=== PATIENT | female | born 2000 | race African-American/Black ===

== ENCOUNTER 2022-03-09 19:15 | Emergency (ER) | payer BC, MEDICAID, SELFPAY ==
--- NOTE | ~2022-03-09 | CT_ITS ---
EXAMINATION: CT abdomen pelvis w con DATE: 03/09/2022 20:45 INDICATION: Low abdominal pain. Back pain. Nausea and vomiting. TECHNIQUE: Computed tomography (CT) of the abdomen and pelvis was performed with 100 mL Omnipaque 350 intravenous contrast. Automated exposure control and iterative reconstruction technique were employe d. The dose-length product was 1011.16 mGy-cm. COMPARISON: None. FINDINGS: The visualized portions of the lung bases are clear without pneumonia or pleural effusion. The heart size is normal. No pericardial effusion. The liver, gallbladder, spleen, pancreas, adrenal glands, and kidneys are normal. There are no dilated loops of bowel. The appendix is normal. There ar e no pathologically enlarged lymph nodes. There is physiologic fluid in the pelvis. There is mild lum bar and thoracic spondylosis. IMPRESSION: 1. No specific etiology for the patient's symptoms. Reviewed, dictated and finalized at location A.
[2022-03-09 19:19] VITALS: BP 131/83; PULSE 84; RESP 20; TEMP 36.3; O2SAT 100
--- NOTE | 2022-03-09 19:41 | ED.ABDPAIN ---
HPI - Abdominal Pain General Chief Complaint: Abdominal Pain Stated Complaint: ABD pain Time Seen by Provider: 03/09/22 19:33 History of Present Illness HPI narrative: Patient is a 21-year-old G1, P1 female with history of ovarian cyst status post removal last year here for evaluation of lower abdominal pain for the past 3 days. Patient states that the pain is intermittent in nature and crampy, begins in her lower abdomen and occasionally moves to her back. Pain no longer present at time of evaluation; resolved without intervention. Additionally reports some intermittent nausea but no vomiting. No fevers or chills, constipation or diarrhea, abnormal vaginal bleeding. Last menstrual cycle was on the and was normal for her. Related Data Allergies Allergy/AdvReac Type Severity Reaction Status Date / Time No Known Allergies Allergy Verified 03/09/22 19:22 Review of Systems Review of Systems: Gen: Denies fevers or chills Eyes: Denies eye pain or visual change ENT: Denies congestion Respiratory: Denies shortness of breath or cough CV: Denies chest pain or palpitations GI: reports abdominal pain. Denies nausea, emesis or diarrhea : denies burning, urgency, frequency or hematuria Musculoskeletal: Denies back pain or muscle pain Neuro: Denies numbness, tingling, weakness or focal weakness Skin: Denies rash Except as documented, all other systems reviewed and negative Exam Narrative: APPEARANCE: Well appearing, no pain in distress, well-nourished. Head: Normocephalic and atraumatic. EYES: PERRLA/EOMI, conjunctivae clear NOSE: No nasal drainage EARS: External ear normal in appearance THROAT: Oropharynx is clear. Mucous membranes are moist. NECK: Supple. No adenopathy, no masses. RESPIRATORY: Airway patent, respirations nonlabored. Clear to auscultation bilaterally, no rales, rhonchi, wheezing. CARDIOVASCULAR: Regular rate and rhythm without murmurs, rubs, or gallops. ABDOMINAL: Normoactive bowel sounds. Soft, nontender, nondistended. No rebound tenderness or guarding. MUSCULOSKELETAL: Extremities are warm and well-perfused. Moves all extremities well. No edema. NEURO: Normal speech. No focal neurologic deficits. SKIN: Skin is warm and dry. No rashes. PSYCHIATRIC: Normal affect/mood. Course Vital Signs Vital signs: Vital Signs Temperature 97.4 F L 03/09/22 19:19 Pulse Rate 84 03/09/22 19:19 Respiratory Rate 20 03/09/22 19:19 Blood Pressure 131/83 03/09/22 19:19 Pulse Oximetry 100 03/09/22 19:19 Temperature 97.4 F L 03/09/22 19:19 Pulse Rate 84 03/09/22 19:19 Respiratory Rate 20 03/09/22 19:19 Blood Pressure 131/83 03/09/22 19:19 Pulse Oximetry 100 03/09/22 19:19 MDM - Abdominal Pain MDM Narrative Medical decision making narrative: 21-year-old female here for evaluation of lower abdominal pain for the past several days associated with some nausea. Here she is nontoxic-appearing with normal vital signs and she has no abdominal tenderness on exam, pain has resolved by time of evaluation. Basic labs unremarkable, no leukocytosis, normal lipase. UA unremarkable. Abdomen pelvis CT without findings to explain patient's pain. She was reassured, encouraged to follow-up with her primary care provider next week. Unclear etiology for patient's pain, possibly constipation versus unspecified GI virus. She was given reasons to return to the ED and she voiced understanding. Lab Data Result diagrams: 03/09/22 20:07 03/09/22 20:07 Labs: Lab Results 03/09/22 03/09/22 03/09/22 Range/Units 19:30 20:07 20:07 WBC 7.7 (4.5-10.0) K/mm3 RBC 3.74 L (4.2-5.4) M/mm3 Hgb 11.2 L (12.0-15.0) g/dL Hct 35.1 L (37.0-47.0) % MCV 93.9 (80-100) fl MCH 29.9 (26-34) pg MCHC 31.9 L (32-36) g/dl RDW 13.2 (11.5-14.5) % Plt Count 213 (150-375) k/mm3 MPV 10.0 (7.4-10.4) fl Immature Gran % (Auto) 0.1 (0-0.5) % Neut % (Au
[2022-03-09 19:42] LABS: Appearance Urine Clear (Clear); Bilirubin Urine Negative (Negative); Blood Urine Negative (Negative); Color Urine Yellow (Yellow); Glucose Urine UA Negative (Negative); Ketones Urine Negative (Negative); Leukocyte Esterase Ur Negative LEU/UL (Negative); Nitrate Urine Negative (Negative); Protein Urine Negative (Negative); Specific Grav Ur 1.025 (1.001-1.035)
[2022-03-09 19:45] LABS: Mucus Urine Rare /lpf; RBC Urine 0-2 /hpf (0-2); Squamous Epithelial Cell Urine Many /hpf (Few); WBC Urine 0-3 /hpf
[2022-03-09 19:51] LABS: Add Urine Microscopic? NO
[2022-03-09 20:13] LABS: Basophils Absolute Auto 0.1 K/mm3 (0.0-0.1); Basophils Percent Auto 0.7 % (0.2-1.2); Eosinophils Absolute Auto 0.1 K/mm3 (0-0.3); Eosinophils Percent Auto 0.9 % (0-4.4); Hematocrit 35.1 % (37.0-47.0); Hemoglobin 11.2 g/dL (12.0-15.0); Immature Granulocyte Absolute 0.01 K/mm3 (0.00-0.031); Immature Granulocyte Percent A 0.1 % (0-0.5); Lymphocytes Absolute Auto 3.29 K/mm3 (0.9-3.2); Mean Corpuscular HGB Conc 31.9 g/dl (32-36); Mean Corpuscular Hemoglobin 29.9 pg (26-34); Mean Corpuscular Volume 93.9 fl (80-100); Monocytes Absolute Auto 0.6 K/mm3 (0.1-0.6); Monocytes Percent Auto 7.8 % (2.6-8.5); Neutrophils Absolute Auto 3.6 K/mm3 (1.3-6.7); Neutrophils Percent Auto 47.5 % (45.5-73.1); Platelet Count Result 213 k/mm3 (150-375); Red Blood Count 3.74 M/mm3 (4.2-5.4); Red Cell Distribution Width 13.2 % (11.5-14.5); White Blood Count 7.7 K/mm3 (4.5-10.0)
[2022-03-09 20:28] LABS: Alanine Aminotransferase 22 U/L (6-35); Albumin Level 3.8 g/dL (3.5-5.1); Alkaline Phosphatase 69 U/L (38-126); Anion Gap 7 mmol/L (8-16); Aspartate Amino Transferase 21 U/L (14-36); Bilirubin,Total 0.5 mg/dL (0.2-1.3); Blood Urea Nitrogen 10 mg/dL (7-17); Calcium 8.4 mg/dL (8.4-10.2); Carbon Dioxide 27 mmol/L (22-30); Chloride 106 mmol/L (98-107); Estimated Glomerular Filt Rate > 60; Glucose 92 mg/dL (65-110); Lipase 150 U/L (23-300); Sodium 140 mmol/L (137-145)
== END 2022-03-09 21:11 | disposition home or self-care (01) ==
PROVIDERS: Emergency Provider Emergency Medicine
DX: R10.30 Lower abdominal pain, unspecified (principal)
CPT/HCPCS: 36415; 74177; 80053; 81003; 81025; 83690; 85025; 99284; Q9967

== ENCOUNTER 2022-10-08 12:34 | Emergency (ER) | payer OTHER, MEDICAID, SELFPAY ==
--- NOTE | ~2022-10-08 | US_ITS ---
EXAMINATION: US OB <=14 wk fetus w TV INDICATION: abdominal cramping, TECHNIQUE: Sonography of the pelvis was performed by transabdominal and transvaginal techniques. COMPARISON: None. RESULT: Uterus: Orientation: Anteverted. 10.8 x 5.9 x 7.4 cm. Myometrium: homogeneous echogenicity. Gestation: - Intrauterine gestational sac: Single present. - Mean Sac Diameter: cm, corresponding gestational age week days. - Yolk sac: 0.44 cm . - Embryo: Single present. - Bulger rump length: 0.74 cm, corresponding gestational age 6 weeks, 4 days. -Gestational heart rate: present 124 bpm. -Subgestational hematoma: Absent . Right ovary: 3.0 x 2.1 x 2.7 cm. Normal sonographic appearance with physiologic follicles. . 1.6 c m minimally complicated cyst. Left ovary: Surgically absent. Pelvis free fluid: Small free fluid is likely physiologic. IMPRESSION: Single, live intrauterine gestation. Estimated Gestational Age: 6 weeks, 4 days by crown rump length. BELLO by ultrasound 05/30/2023. Reviewed, dictated and finalized at location K. IMPRESSION: Single, live intrauterine gestation. Estimated Gestational Age: 6 weeks, 4 days by crown rump length. BELLO by ultras ound 05/30/2023.
[2022-10-08 12:47] VITALS: BP 129/77; PULSE 81; RESP 18; TEMP 36.6; O2SAT 100
[2022-10-08 13:00] LABS: Basophils Absolute Auto 0.1 K/mm3 (0.0-0.1); Basophils Percent Auto 0.5 % (0.2-1.2); Eosinophils Absolute Auto 0.1 K/mm3 (0-0.3); Eosinophils Percent Auto 0.7 % (0-4.4); Hematocrit 38.2 % (37.0-47.0); Hemoglobin 12.2 g/dL (12.0-15.0); Immature Granulocyte Absolute 0.03 K/mm3 (0.00-0.031); Immature Granulocyte Percent A 0.3 % (0-0.5); Lymphocytes Absolute Auto 1.97 K/mm3 (0.9-3.2); Lymphocytes Percent Auto 20.8 % (18.3-44.2); Mean Corpuscular HGB Conc 31.9 g/dl (32-36); Mean Corpuscular Hemoglobin 30.2 pg (26-34); Mean Corpuscular Volume 94.6 fl (80-100); Mean Platelet Volume 9.7 fl (7.4-10.4); Monocytes Absolute Auto 0.6 K/mm3 (0.1-0.6); Neutrophils Absolute Auto 6.8 K/mm3 (1.3-6.7); Neutrophils Percent Auto 71.7 % (45.5-73.1); Platelet Count Result 259 k/mm3 (150-375); Red Blood Count 4.04 M/mm3 (4.2-5.4); White Blood Count 9.5 K/mm3 (4.5-10.0)
[2022-10-08 13:04] LABS: Appearance Urine Clear (Clear); Bilirubin Urine Negative (Negative); Blood Urine Negative (Negative); Color Urine Yellow (Yellow); Glucose Urine UA Negative (Negative); Ketones Urine Negative (Negative); Leukocyte Esterase Ur Negative LEU/UL (Negative); Nitrate Urine Negative (Negative); Protein Urine Negative (Negative); Specific Grav Ur 1.008 (1.001-1.035); Urobilinogen Urine 0.2 mg/dL (<2.0)
[2022-10-08 13:10] LABS: Add Urine Microscopic? NO
[2022-10-08 13:19] LABS: Alanine Aminotransferase 22 U/L (6-35); Albumin Level 4.4 g/dL (3.5-5.1); Alkaline Phosphatase 55 U/L (38-126); Anion Gap 9 mmol/L (8-16); Aspartate Amino Transferase 21 U/L (14-36); Bilirubin,Total 0.9 mg/dL (0.2-1.3); Blood Urea Nitrogen 6 mg/dL (7-17); Calcium 8.7 mg/dL (8.4-10.2); Carbon Dioxide 24 mmol/L (22-30); Chloride 100 mmol/L (98-107); Estimated CRCL calculation 157 ml/min; Estimated Glomerular Filt Rate > 60; Glucose 78 mg/dL (65-110); Lipase 58 U/L (23-300); Potassium 3.5 mmol/L (3.4-5.0); Sodium 133 mmol/L (137-145)
--- NOTE | 2022-10-08 14:15 | PC.NURSE ---
pt taken to US
--- NOTE | 2022-10-08 14:17 | ED.ABDPAIN ---
HPI - Abdominal Pain General Chief Complaint: Abdominal Pain Stated Complaint: abdominal pain Time Seen by Provider: 10/08/22 13:28 Source: patient and RN notes reviewed Mode of arrival: ambulatory Limitations: no limitations History of Present Illness HPI narrative: This is a 22 year old female who presents for evaluation of lower abdominal cramping. She has been having cramping for 2 days. She just had a positive test. She reports nausea and vomiting. She denies vaginal discharge or vaginal bleeding. She reports pain is 6/10. She has not taken any medication for her pain. Her OBGYN is located in [place]. Related Data Allergies Allergy/AdvReac Type Severity Reaction Status Date / Time No Known Allergies Allergy Verified 10/08/22 13:26 Review of Systems Constitutional: Constitutional: Denies weakness Cardiovascular: Cardiovascular: Denies syncope, Denies rapid heart rate, Denies irregular heart rhythm, Denies leg edema and Denies dyspnea Respiratory: Respiratory: Denies chest congestion, Denies hemoptysis, Denies excessive phlegm production and Denies dyspnea Gastrointestinal: Gastrointestinal: Reports abdominal pain, Denies hematochezia, Denies diarrhea, Reports nausea and Reports vomiting Genitourinary: Genitourinary: Denies hematuria and Denies dysuria Musculoskeletal: Musculoskeletal: Denies joint swelling, Denies loss of height and Denies muscle weakness Neurologic: Denies syncope, Denies focal weakness and Denies weakness PMFSH Past Medical History Medical History (Updated 10/08/22 @ 17:06 by Lila Barreto MD) Patient denies medical problems Surgical History Surgical History (Updated 10/08/22 @ 14:22 by Lila Barreto MD) No pertinent past surgical history Social History Social History (Updated 10/08/22 @ 14:22 by Lila Barreto MD) Smoking status: Never smoker Exam Const: General: no acute distress and alert Nutritional Appearance: well nourished Orientation/consciousness: patient oriented x3 Limitations: no limitations HENMT: Head: normal to inspection Eyes: EOM: EOMs intact bilaterally Chest: Chest palpation & inspection: normal inspection of the chest Resp: Effort & Inspection: normal respiratory effort Auscultation: clear to auscultation bilaterally Cardio: Rate: regular rate Rhythm: regular rhythm Heart sounds: no murmurs GI: GI Palp: Yes Soft to palpation, No Tenderness to palpation present (GI), No Guarding due to palpation present (GI) and No Rigid due to palpation Auscultation: normal bowel sounds Skin: General skin exam: normal color Rashes: no rashes Wounds: no wounds Neuro: General: patient oriented x3, moves all extremities and CN's II-XI intact bilaterally Cranial nerves: Yes Nystagmus not present Speech: normal speech Gait exam (Neuro): Normal gait present Extrem: General: normal to inspection Psych: Mental Status: mental status grossly normal Affect: normal affect Attitude: cooperative Course Reevaluation(s) Reevaluation #1: PAtient states she feels better. She denies any nausea. I discussed US results showing IUP and right cyst She denies any other questions or concerns and follow up with OBGYN. Date: 10/08/22 Time: 17:02 Vital Signs Vital signs: Vital Signs Temperature 97.9 F 10/08/22 12:47 Pulse Rate 81 10/08/22 12:47 Respiratory Rate 18 10/08/22 12:47 Blood Pressure 129/77 10/08/22 12:47 Pulse Oximetry 100 10/08/22 12:47 Oxygen Delivery Room Air 10/08/22 12:47 Temperature 97.9 F 10/08/22 12:47 Pulse Rate 81 10/08/22 12:47 Respiratory Rate 18 10/08/22 12:47 Blood Pressure 129/77 10/08/22 12:47 Pulse Oximetry 100 10/08/22 12:47 Oxygen Delivery Room Air 10/08/22 12:47 MDM - Abdominal Pain MDM Narrative Medical decision making narrative: Patient presents with lower abdominal cramping with positive test, US ordered to assess IUP. IUP found without
[2022-10-08] MEDS: SODIUM CHLORIDE 0.9% IV 1,000 ML 999 ML IV CONT (14:26)
[2022-10-08] MEDS: ONDANSETRON INJ 4 MG/2 ML VIAL IV PUSH (14:27)
[2022-10-08] MEDS: METOCLOPRAMIDE HCL INJ 10 MG/2 ML VIAL IV PUSH (16:18)
== END 2022-10-08 17:15 | disposition home or self-care (01) ==
PROVIDERS: Emergency Medicine; Emergency Provider General Practice
DX: O26.891 Other specified pregnancy related conditions, first trimester (principal); R10.30 Lower abdominal pain, unspecified; O21.9 Vomiting of pregnancy, unspecified; O34.81 Maternal care for other abnormalities of pelvic organs, first trimester; N83.201 Unspecified ovarian cyst, right side; Z3A.01 Less than 8 weeks gestation of pregnancy
CPT/HCPCS: 36415; 76801; 76817; 80053; 81003; 81025; 83690; 84702; 85025; 85461; 86850; 86900; 86901; 96361; 96365; 96375; 99284; J0131; J2405; J2765; J7030

== ENCOUNTER 2023-03-31 17:22 | Emergency (ER) | payer OTHER, BC, MEDICAID, SELFPAY ==
--- NOTE | ~2023-03-31 | US_ITS ---
EXAMINATION: US OB <= 14 weeks fetus INDICATION: pelvic cramping, vaginal bleeding, 10 wks TECHNIQUE: Sonography of the pelvis was performed by transabdominal and transvaginal techniques. COMPARISON: 10/08/2022. RESULT: Uterus: 11.8 x 7.4 x 8.7 cm. Anteverted. Homogenous myometrium. Long and closed cervix, measuring 5. 8 cm. Intrauterine gestational sac: Present. Yolk sac: Not seen. Embryo: Single present. Olds rump length: 3.6 cm, corresponding gestational age 10 weeks, 3 days. G estational heart rate: present 167 bpm. Subgestational hematoma: Absent . Right ovary: 2.9 x 1.9 x 2.0 cm. Vascular flow is present. Simple cyst versus dominant follicle. Left ovary: Surgically absent. Pelvis free fluid: None. IMPRESSION: Single, live intrauterine gestation. Estimated Gestational Age: 10 weeks, 3 days by crown rump length. BELLO by ultrasound 10/24/2023. Reviewed, dictated and finalized at location K. IMPRESSION: Single, live intrauterine gestation. Estimated Gestational Age: 10 weeks, 3 days by crown rump length. BELLO by ultra sound 10/24/2023.
[2023-03-31 17:25] VITALS: BP 125/80; PULSE 102; RESP 18; TEMP 36.6; O2SAT 100
--- NOTE | 2023-03-31 17:43 | ECG_ITS ---
Measurements Intervals [place] Rate: 99 P: 54 CT: 152 QRS: 46 QRSD: 83 T: 40 QT: 325 QTc: 417 Interpretive Statements SINUS RHYTHM NORMAL ELECTROCARDIOGRAM NO PREVIOUS ECG AVAILABLE FOR COMPARISON Electronically Signed On 04-01-2023 7:04:48 CDT by Kalpesh Mullins M.D.
--- NOTE | 2023-03-31 17:43 | ED.ABDPAIN ---
HPI - Abdominal Pain General Chief Complaint: Abdominal Pain Stated Complaint: lower abd pain; 10 weeks preg Time Seen by Provider: 03/31/23 17:30 Source: patient Mode of arrival: ambulatory Limitations: no limitations History of Present Illness HPI narrative: This is a 22 year old , about 10 weeks , that presents to the ER for pelvic cramping. Ongoing over the last couple of days. Also reports vaginal spotting. Reports a miscarriage earlier this year which concerned her and prompted her to be seen today. Reports her OB is at [facility]. She had an ultrasound last week which showed an intrauterine . Also reports a presyncopal episode yesterday. Reports history of this in prior pregnancies. Reports she was at a trunk or treat and thinks she got overheated. Reports she started to feel lightheaded and had to sit down. Reports a bystander said that she closed her eyes just for a moment and then came back to. She did not hit her head or sustain any other injuries. Denies chest pain, shortness of breath, vomiting, dysuria, or hematuria. Related Data Allergies Allergy/AdvReac Type Severity Reaction Status Date / Time No Known Allergies Allergy Verified 03/31/23 18:05 Review of Systems Review of Systems: CONSTITUTIONAL: Denies fever CARDIOVASCULAR: Denies chest pain, or edema. RESPIRATORY: Denies dyspnea. GASTROINTESTINAL: Denies vomiting GENITOURINARY: Denies dysuria or hematuria. All systems reviewed & are unremarkable except as noted in HPI and below PMFSH Past Medical History Medical History (Updated 03/31/23 @ 19:52 by Angie Collins PA-C) Patient denies medical problems Surgical History Surgical History (Updated 10/08/22 @ 14:22 by Lila Barreto MD) No pertinent past surgical history Social History Social History (Updated 10/08/22 @ 14:22 by Lila Barreto MD) Smoking status: Never smoker Exam Narrative: GENERAL: Well-appearing, well-nourished, and in no acute distress. HEAD: Normocephalic, atraumatic. EYES: EOMI. CHEST: Clear to auscultation. No respiratory distress. No wheezes rales or rhonchi HEART: Regular rate and rhythm. No murmur heard. Normal peripheral pulses. ABDOMEN: Soft, nontender, nondistended, normal active bowel sounds. EXTREMITIES: Normal range of motion. No edema. SKIN: Warm, dry, no rash. NEURO: No focal deficits. Alert and oriented x3. PSYCH: Normal mood and affect Course Course Emergency Course: Patient updated on work-up and agrees with plan of care Vital Signs Vital signs: Vital Signs Temperature 97.8 F 03/31/23 17:25 Pulse Rate 102 H 03/31/23 17:25 Respiratory Rate 18 03/31/23 17:25 Blood Pressure 125/80 03/31/23 17:25 Pulse Oximetry 100 03/31/23 17:25 Oxygen Delivery Room Air 03/31/23 17:25 Temperature 97.8 F 03/31/23 17:25 Pulse Rate 103 H 03/31/23 18:00 Respiratory Rate 18 03/31/23 17:25 Blood Pressure 142/86 H 03/31/23 18:00 Pulse Oximetry 100 03/31/23 17:25 Oxygen Delivery Room Air 03/31/23 17:25 MDM - Abdominal Pain MDM Narrative Medical decision making narrative: Patient presents to the emergency department for pelvic cramping and vaginal spotting. Currently about 10 weeks . She is afebrile and nontoxic-appearing. Her vitals are stable. Mildly tachycardic upon arrival, this normalized with IV fluid hydration. Also reporting a presyncopal type episode yesterday. Does report previous history of this in prior pregnancies. CBC with mild leukocytosis to 11.2. Also shows normocytic anemia with hemoglobin of 11. Metabolic panel without concerning findings. Quantitative beta-hCG 42,950. ultrasound does show single, live intrauterine gestation. Patient has been positive. UA with 2+ leuk esterase and 6-10 white blood cells, also some squamous epithelial cells. Patient does not have any urinary symptoms currently. This will be sent for culture. EKG without concernin
[2023-03-31 17:58] VITALS: BP 144/70; PULSE 99
[2023-03-31 17:59] VITALS: BP 146/69; PULSE 96
[2023-03-31 18:00] VITALS: BP 142/86; PULSE 103
[2023-03-31 18:02] LABS: Basophils Percent Auto 0.3 % (0.2-1.2); Eosinophils Percent Auto 0.3 % (0-4.4); Hematocrit 34.7 % (37.0-47.0); Immature Granulocyte Absolute 0.06 K/mm3 (0.00-0.031); Immature Granulocyte Percent A 0.5 % (0-0.5); Lymphocytes Absolute Auto 2.18 K/mm3 (0.9-3.2); Lymphocytes Percent Auto 19.5 % (18.3-44.2); Mean Corpuscular HGB Conc 31.7 g/dl (32-36); Mean Corpuscular Hemoglobin 30.1 pg (26-34); Mean Corpuscular Volume 95.1 fl (80-100); Mean Platelet Volume 9.8 fl (7.4-10.4); Monocytes Absolute Auto 0.5 K/mm3 (0.1-0.6); Monocytes Percent Auto 4.5 % (2.6-8.5); Neutrophils Absolute Auto 8.4 K/mm3 (1.3-6.7); Neutrophils Percent Auto 74.9 % (45.5-73.1); Platelet Count Result 264 k/mm3 (150-375); Red Blood Count 3.65 M/mm3 (4.2-5.4); Red Cell Distribution Width 13.3 % (11.5-14.5); White Blood Count 11.2 K/mm3 (4.5-10.0)
[2023-03-31] MEDS: SODIUM CHLORIDE 0.9% IV 1,000 ML 999 ML IV CONT (18:06)
[2023-03-31 18:11] LABS: Appearance Urine Clear (Clear); Bacteria Urine None Seen /hpf; Bilirubin Urine Negative (Negative); Blood Urine Trace (Negative); Color Urine Yellow (Yellow); Glucose Urine UA Negative (Negative); Ketones Urine Negative (Negative); Leukocyte Esterase Ur 2+ LEU/UL (Negative); Nitrate Urine Negative (Negative); Non Pathogenic Casts 0-2; Protein Urine Negative (Negative); Specific Grav Ur 1.008 (1.001-1.035); Squamous Epithelial Cell Urine Occasional /hpf (Few); Urobilinogen Urine 0.2 mg/dL (<2.0); pH Urine 6.5 (5.0-9.0)
[2023-03-31 18:12] LABS: Add Urine Microscopic? YES
[2023-03-31 18:24] LABS: Troponin I < 0.012 ng/mL (0.000-0.034)
[2023-03-31 19:01] LABS: Alanine Aminotransferase 23 U/L (6-35); Albumin Level 3.8 g/dL (3.5-5.1); Alkaline Phosphatase 55 U/L (38-126); Anion Gap 7 mmol/L (8-16); Aspartate Amino Transferase 26 U/L (14-36); Bilirubin,Total 0.5 mg/dL (0.2-1.3); Blood Urea Nitrogen 10 mg/dL (7-17); Calcium 8.8 mg/dL (8.4-10.2); Carbon Dioxide 23 mmol/L (22-30); Chloride 102 mmol/L (98-107); Estimated CRCL calculation 163 ml/min; Estimated Glomerular Filt Rate > 60; Glucose 92 mg/dL (65-110); Potassium 3.7 mmol/L (3.4-5.0); Sodium 132 mmol/L (137-145)
[2023-03-31 20:04] VITALS: BP 144/95; PULSE 83; RESP 16; O2SAT 100
== END 2023-03-31 20:05 | disposition home or self-care (01) ==
PROVIDERS: Emergency Provider Physician Assistant
DX: O20.9 Hemorrhage in early pregnancy, unspecified (principal); O99.011 Anemia complicating pregnancy, first trimester; D64.9 Anemia, unspecified; O26.891 Other specified pregnancy related conditions, first trimester; R55 Syncope and collapse; R82.998 Other abnormal findings in urine; Z3A.10 10 weeks gestation of pregnancy
CPT/HCPCS: 36415; 76801; 80053; 81001; 81025; 84484; 84702; 85025; 85461; 86850; 86900; 86901; 87086; 93005; 96360; 99284; J7030

== ENCOUNTER 2023-07-27 08:58 | Emergency (ER) | payer OTHER, BC, MEDICAID, SELFPAY ==
--- NOTE | ~2023-07-27 | XR_ITS ---
EXAMINATION: XR tibia fibula LT 2V DATE: 07/27/2023 13:55 INDICATION: Left lower leg pain post fall TECHNIQUE: Anteroposterior and lateral views of the left tibia and fibula were obtained. COMPARISON: None. FINDINGS: Alignment is normal. No fracture. Joint spaces are normal. Small ovoid subcutaneous phlebolith versus heterotopic ossicle anterior to the distal patellar tendon. Soft tissues are otherwise unremarkable. IMPRESSION: 1. Negative left lower leg radiographs. Reviewed, dictated and finalized at location A. DRESSER
[2023-07-27 09:01] VITALS: BP 154/95; PULSE 95; RESP 18; TEMP 36.4; O2SAT 99
--- NOTE | 2023-07-27 13:28 | ED.FALL ---
HPI - Fall General Chief Complaint: Fall Stated Complaint: 28 weeks /fall/left leg pain Time Seen by Provider: 07/27/23 12:57 History of Present Illness HPI Narrative: 22-year-old female presented to the emergency department for evaluation after having a ground level fall this morning. Patient states that she was walking on the ice when she fell and injured her left leg and lower back. Patient did present to OB and was cleared by OB prior to presenting to the emergency department. Patient is 28 weeks and denies any current abdominal pain or abdominal cramping. Related Data Home Medications Medication Instructions Recorded Confirmed vit no.95-ferrous 1 tablet PO DAILY 07/27/23 07/27/23 fumarate 28 mg-folic acid 800 mcg tablet () Allergies Allergy/AdvReac Type Severity Reaction Status Date / Time No Known Allergies Allergy Verified 07/27/23 09:04 Review of Systems Review of Systems: All systems reviewed & are unremarkable except as noted in HPI and below PMFSH Past Medical History Medical History (Updated 07/27/23 @ 14:26 by Donte Lugo MD) Patient denies medical problems Surgical History Surgical History (Updated 10/08/22 @ 14:22 by Lila Barreto MD) No pertinent past surgical history Social History Social History (Updated 10/08/22 @ 14:22 by Lila Barreto MD) Smoking status: Never smoker Exam Narrative: APPEARANCE: Well appearing, no pain, no distress, well-nourished. HEAD: normocephalic, atraumatic. EYES: PERRLA/EOMI, conjunctivae clear. NOSE: Normal no drainage NECK: Supple. No adenopathy, no masses. RESPIRATORY: Airway patent, respirations nonlabored. Clear to auscultation bilaterally, no rales, rhonchi, wheezing. CARDIOVASCULAR: Regular rate and rhythm without murmurs rubs or gallops. ABDOMINAL: Soft, nontender, nondistended, normal bowel sounds MUSCULOSKELETAL: left posterior calf tenderness to palpation. No midline lower back tenderness to palpation NEURO: Alert. Cranial nerves II through XII intact. grossly intact SKIN: Warm, dry. Normal Color Course Course Emergency Course: 22 old female presenting the for evaluation for leg pain and lower back pain. Patient did present to OB prior to presenting to the emergency department and she was cleared by OB. Patient still denies any abdominal cramping vaginal bleeding vaginal discharge. Patient's primary complaint was left lower leg pain and x-rays were negative. Patient was encouraged to take Tylenol for pain control. All questions and concerns were addressed patient was well-appearing at time of discharge. Vital Signs Vital signs: Vital Signs Temperature 97.5 F L 07/27/23 09:01 Pulse Rate 95 07/27/23 09:01 Respiratory Rate 18 07/27/23 09:01 Blood Pressure 154/95 H 07/27/23 09:01 Pulse Oximetry 99 07/27/23 09:01 Oxygen Delivery Room Air 07/27/23 09:01 Temperature 97.5 F L 07/27/23 09:01 Pulse Rate 74 07/27/23 14:36 Respiratory Rate 18 07/27/23 14:36 Blood Pressure 122/66 07/27/23 14:36 Pulse Oximetry 98 07/27/23 14:36 Oxygen Delivery Room Air 07/27/23 09:01 MDM - Fall Imaging Data Radiologist's impression: Impressions Tibia/Fibula X-Ray 07/27/23 13:57 IMPRESSION: 1. Negative left lower leg radiographs. Discharge Plan Discharge Clinical Impression: Acute leg pain Patient Disposition: Still a Patient Condition: Stable Additional Instructions: Tylenol for pain control. Have close follow-up with again. If you have worsening symptoms then please call or return to the department Prescriptions: No Action PNV cmb#95-ferrous fumarate-FA [] 28 mg iron- 800 mcg Tablet 1 tablet PO DAILY Follow-up/Referrals: PHYSICIAN,HEALTH CARE / MEDICAL JOB TITLES [Primary Care Provider] -
[2023-07-27 14:36] VITALS: BP 122/66; PULSE 74; RESP 18; O2SAT 98
== END 2023-07-27 14:37 | disposition home or self-care (01) ==
PROVIDERS: Emergency Provider Emergency Medicine
DX: O9A.213 Injury, poisoning and certain other consequences of external causes complicating pregnancy, third trimester (principal); S89.92XA Unspecified injury of left lower leg, initial encounter; Z3A.28 28 weeks gestation of pregnancy; W00.0XXA Fall on same level due to ice and snow, initial encounter
CPT/HCPCS: 73590; 99283; A9270; G0378; G0379

== ENCOUNTER 2023-07-27 10:36 | Observation (INO) | payer OTHER, BC, MEDICAID, SELFPAY ==
[2023-07-27 11:08] VITALS: BP 115/62; PULSE 82
[2023-07-27 11:09] VITALS: BMI 45.2
--- NOTE | 2023-07-27 11:11 | OBADM ---
This patient, Tamara Keller, admitted to the OB room 116 for observation post fall. Patient/family oriented to hospital policies and general routines including ID bracelet, bed and alarms, visiting hours, pain management, procedures, bathroom and other care routines, personal items, smoking policy, room service/diet, and visiting hours. Patient/Family are encouraged to report perceived risks to care and to ask questions if they do not understand what they are told or what they should do.
[2023-07-27 11:16] VITALS: BP 116/59; PULSE 82
[2023-07-27 11:31] VITALS: BP 111/62; PULSE 85; RESP 18; TEMP 36.8
[2023-07-27 11:44] VITALS: BP 111/62; PULSE 85
[2023-07-27 11:46] VITALS: BP 114/59; PULSE 88
[2023-07-27] MEDS: ACETAMINOPHEN 500 MG TABLET 1000 MG PO (12:08)
--- NOTE | 2023-07-29 13:28 | PM.OBTRLD ---
OB - Triage/Final Diagnosis Visit Information Reason for evaluation: decreased movement and other ( Status post fall) Comments/Additional reasons for admission: I have assessed the risk for this patient, Tamara Keller, and determined that she would benefit from observation care.
== END 2023-07-27 12:12 | disposition home or self-care (01) ==
PROVIDERS: Admitting Provider Obstetrics & Gynecology Gynecology; Visit Provider Obstetrics & Gynecology Gynecology
DX: Z04.3 Encounter for examination and observation following other accident (principal); W00.0XXA Fall on same level due to ice and snow, initial encounter; O36.8130 Decreased fetal movements, third trimester, not applicable or unspecified; Z3A.28 28 weeks gestation of pregnancy
CPT/HCPCS: A9270; G0378; G0379

== ENCOUNTER 2023-11-15 08:58 | Emergency (ER) | payer OTHER, MEDICAID, SELFPAY ==
[2023-11-15 09:02] VITALS: PULSE 87; RESP 18; TEMP 36.6; O2SAT 99
[2023-11-15 09:06] VITALS: BP 132/94
--- NOTE | 2023-11-15 09:21 | ED.GENADULT ---
HPI - General Adult General Chief complaint: Skin/Abscess/Foreign Body Stated complaint: rash to face Time Seen by Provider: 11/15/23 09:13 History of Present Illness HPI narrative: this is a 23-year-old female with history of maximum presenting with a facial rash. She noticed that she had some swelling and itching around her mouth and eyes yesterday. She took some Benadryl with some relief. No systemic signs of allergic reaction such as swelling of her lips tongue uvula, shortness of breath, nausea vomiting diarrhea. Patient has had this in the past and says it resolved a course of steroids. Patient also has a prescription lotion for her eczema at home. Related Data Home Medications Medication Instructions Recorded Confirmed vit no.95-ferrous 1 tablet PO DAILY 07/27/23 07/27/23 fumarate 28 mg-folic acid 800 mcg tablet () Allergies Allergy/AdvReac Type Severity Reaction Status Date / Time No Known Allergies Allergy Verified 11/15/23 09:05 [facility] Past Medical History Medical History Eczema Patient denies medical problems Surgical History Surgical History No pertinent past surgical history Social History Social History Smoking status: Never smoker Exam Narrative: APPEARANCE: No apparent distress. Head: atraumatic. no swollen lips tongue uvula EYES: EOMI, NOSE: Atraumatic NECK: Trachea midline RESPIRATORY: No increased rate of breathing CTAB CARDIOVASCULAR: RRR, ABDOMINAL: Non-distended soft nontender MUSCULOSKELETAl: No obvious deformities NEURO: Alert. Moving 4/4 extremities SKIN:: dry skin around the patient's mouth and lower eyes PSYCHIATRIC: Normal affect Course Vital Signs Vital signs: Vital Signs Temperature 97.8 F 11/15/23 09:02 Pulse Rate 87 11/15/23 09:02 Respiratory Rate 18 11/15/23 09:02 Pulse Oximetry 99 11/15/23 09:02 Oxygen Delivery Room Air 11/15/23 09:02 Temperature 97.8 F 11/15/23 09:02 Pulse Rate 87 11/15/23 09:02 Respiratory Rate 18 11/15/23 09:02 Blood Pressure 132/94 H 11/15/23 09:06 Pulse Oximetry 99 11/15/23 09:02 Oxygen Delivery Room Air 11/15/23 09:02 Medical Decision Making MDM Narrative Medical decision making narrative: -Course: 23-year-old female presenting with possible allergic reaction dry skin around her mouth denies. She has a history of eczema. She has had this in past and improved with steroids. She will be given a 7 day course of prednisone and primary care follow-up. No signs of anaphylaxis at this time -DDX includes but is not limited to: eczema, allergic reaction -Co-morbidities complicating care: maximum, breast-feeding -Interventions: dexamethasone 10mg -Shared decision making / Disposition: discharge -RX prednisone 20 mg x 7 days Vital Signs Vital Signs: Vital Signs Temperature 97.8 F 11/15/23 09:02 Pulse Rate 87 11/15/23 09:02 Respiratory Rate 18 11/15/23 09:02 Pulse Oximetry 99 11/15/23 09:02 Oxygen Delivery Room Air 11/15/23 09:02 Temperature 97.8 F 11/15/23 09:02 Pulse Rate 87 11/15/23 09:02 Respiratory Rate 18 11/15/23 09:02 Blood Pressure 132/94 H 11/15/23 09:06 Pulse Oximetry 99 11/15/23 09:02 Oxygen Delivery Room Air 11/15/23 09:02 Discharge Plan Discharge Clinical Impression: Eczema, Allergic reaction Patient Disposition: Home, Self-Care Condition: Stable Instructions: Antibiotic Form, Eczema (ED), Allergies (ED) Additional Instructions: please take steroids as instructed. Please use your moisturizer cream for eczema. Please follow-up your primary care physician. Return your develop redness warmth, pain, swelling of her mouth tongue lips, difficulty breathing or abdominal pain Prescriptions: New prednisone 20 m
[2023-11-15] MEDS: predniSONE 20 MG TABLET PO (09:32)
== END 2023-11-15 09:51 | disposition home or self-care (01) ==
LOC: ANHED 09:43
PROVIDERS: Emergency Provider Emergency Medicine
DX: L30.9 Dermatitis, unspecified (principal); T78.40XA Allergy, unspecified, initial encounter; X58.XXXA Exposure to other specified factors, initial encounter
CPT/HCPCS: 99283; J7512

== ENCOUNTER 2023-11-18 07:32 | Emergency (ER) | payer OTHER, BC, MEDICAID, SELFPAY ==
[2023-11-18 07:37] VITALS: BP 142/93; PULSE 79; RESP 16; TEMP 36.4; O2SAT 100
--- NOTE | 2023-11-18 07:57 | ED.SKABFB ---
HPI - Skin/Abscess/Foreign Bdy General Chief complaint: Skin/Abscess/Foreign Body Stated complaint: skin problems Time Seen by Provider: 11/18/23 07:51 History of Present Illness HPI narrative: Patient is a 23-year-old female who presents ER with a rash to her face. Was seen for similar issue 3 days ago. Prescribed prednisone for her eczema. She has been taking it but unfortunate developed some redness across her left cheek and then this morning developed puffiness of her eyes and some irritation around the eyes as well. No fevers or chills or sweats. No difficulty breathing or swallowing. Denies any new facial creams or perfumes. She has not been out in the [place] or had any new animals around for. It is itchy. Related Data Home Medications Medication Instructions Recorded Confirmed vit no.95-ferrous 1 tablet PO DAILY 07/27/23 07/27/23 fumarate 28 mg-folic acid 800 mcg tablet () Allergies Allergy/AdvReac Type Severity Reaction Status Date / Time No Known Allergies Allergy Verified 11/18/23 07:41 Review of Systems Constitutional: Constitutional: Reports no additional constitutional complaints ENT: Reports system reviewed and no additional complaints, except as documented Integumentary/Breasts: Skin/Breast: Reports pruritus, Denies erythema, Reports rash and Denies skin ulcer PMFSH Past Medical History Medical History Eczema Patient denies medical problems Surgical History Surgical History No pertinent past surgical history Social History Social History Smoking status: Never smoker Exam Narrative: GENERAL: Well-appearing, well-nourished, and in no acute distress. HEAD: Normocephalic, atraumatic. ENT: Mucous membranes moist. CHEST: Clear to auscultation. No respiratory distress. HEART: Regular rate and rhythm. Normal peripheral pulses. SKIN: Warm, dry . Scaly rash to the left cheek as well as the infraorbital region and puffiness of eyelids. Mild rash around the mouth. NEURO: Alert and oriented x3. PSYCH: Normal mood and affect. Course Course Emergency Course: continue prednisone, will add on what appears an ointment. Recommend follow-up with PCP and her molder inflated ball. Vital Signs Vital signs: Vital Signs Temperature 97.6 F 11/18/23 07:37 Pulse Rate 79 11/18/23 07:37 Respiratory Rate 16 11/18/23 07:37 Blood Pressure 142/93 H 11/18/23 07:37 Pulse Oximetry 100 11/18/23 07:37 Oxygen Delivery Room Air 11/18/23 07:37 Temperature 97.6 F 11/18/23 07:37 Pulse Rate 79 11/18/23 07:37 Respiratory Rate 16 11/18/23 07:37 Blood Pressure 142/93 H 11/18/23 07:37 Pulse Oximetry 100 11/18/23 07:37 Oxygen Delivery Room Air 11/18/23 07:37 Discharge Plan Discharge Clinical Impression: Impetigo Patient Disposition: Home, Self-Care Condition: Stable Instructions: Impetigo (ED) Additional Instructions: Return the ER if you have worsening rash, you cannot breathe, you cannot swallow, you have additional concerns. Follow-up with your primary care doctor. Prescriptions: New mupirocin 2 % ointment 1 applic topical TID Qty: 22 0RF No Action PNV cmb#95-ferrous fumarate-FA [] 28 mg iron- 800 mcg Tablet 1 tablet PO DAILY prednisone 20 mg tablet 20 mg PO DAILY Qty: 7 0RF Follow-up/Referrals: UNKNOWN,DOCTOR [Primary Care Provider] - 1 Week
[2023-11-18 08:26] VITALS: BP 132/91; PULSE 76; RESP 16; O2SAT 100
== END 2023-11-18 08:27 | disposition home or self-care (01) ==
LOC: ANHED 08:07
PROVIDERS: Emergency Provider Emergency Medicine
DX: L01.00 Impetigo, unspecified (principal)
CPT/HCPCS: 99283